=== PATIENT | female | born 1995 | race Caucasian/White ===

== ENCOUNTER 2017-02-16 15:49 | Emergency (ER) | payer MEDICAID ==
[~2017-02-16] VITALS: Ht 144.8 cm; Wt 46.3 kg
[~2017-02-16 15:49] MED LIST: CITA10TA4 PO; CONJTAB PO; DAYT15DI T-DERMAL
[2017-02-16 15:53] VITALS: BP 119/73; PULSE 104; RESP 18; TEMP 98.6; O2SAT 98
[2017-02-16] MEDS ORDERED: FLUT50SP EACH NARE (16:05)
[2017-02-16] MEDS ORDERED: PATA0.6S NASAL (16:05)
--- NOTE | 2017-02-16 16:34 | PD ---
HPI Chief Complaint: Medication Refill Request Time Seen by Provider: 16:00 Travel History International Travel<30 days: No Contact w/Intl Traveler<30days: No Traveled to known affect area: No History of Present Illness HPI 22-year-old female presents to the emergency room requesting medication refill. Patient takes Daytrana patches daily and has been for several years but her primary care physician recently moved offices and she has not been able to get a refill for next month in time. States she has been making her last prescription last longer than normal because she does not take them every day. Patient's mother made an appointment for a different doctors office so that they can refill her medication but appointment is not for another 4 days. Patient and her mother are concerned because she starts a new job in 2 days and she will not have any patches to help her concentrate. PFSH Past Medical History ADHD: Yes Anxiety: Yes Depression: Yes Diminished Hearing: Yes (MILD TO MODERATE HEARING LOSS) Headaches: Yes Reproductive: Yes (IRREG. PERIODS) Immunizations Current: Yes Influenza Vaccination: No ?: Not LMP: IRREGULAR Past Surgical History Abdominal Surgery: Yes (MALINI FUNDOPLICATION) Tonsillectomy: Yes Tympanostomy Tube: Yes (BILAT) Social History Alcohol Use: No Tobacco Use: No Substance Use: No Allergies-Medications (Allergen,Severity, Reaction): Coded Allergies: Gentamicin (Verified Allergy, Severe, Swelling, 02/16/17) Reported Meds & Prescriptions Reported Meds & Active Scripts Active Reported Patanase Nasal [place] (Olopatadine Nasal [place]) 0.6 % Naspr 1 Spr NASAL DAILY Fluticasone Nasal [place] 50 Mcg/Act Naspr 100 Mcg EACH NARE DAILY 50 mcg/spray Daytrana Patch 9 HR (Methylphenidate Patch 9 HR) 15 Mg/9 Hr Patch 1 Patch T- DERMAL DAILY Remove after 9 hours Premphase Blister Pack (Estrogens Conj/Medroxyprogest Acet) 0.625-5 Mg Tab 1 Tab PO DAILY Take 1 maroon tablet daily for 14 days followed by 1 light-blue tablet for 14 days. Citalopram (Citalopram Hydrobromide) 10 Mg Tab 10 Mg PO DAILY Review of Systems Except as stated in HPI: all other systems reviewed are Neg Physical Exam Narrative GENERAL: Well-nourished, well-developed female in no acute distress. Afebrile. Ambulatory. SKIN: Focused skin assessment warm/dry. HEAD: Normocephalic. EYES: No scleral icterus. No injection or drainage. NECK: Supple, trachea midline. No JVD or lymphadenopathy. CARDIOVASCULAR: Regular rate and rhythm without murmurs, gallops, or rubs. RESPIRATORY: Breath sounds equal bilaterally. No accessory muscle use. PSYCHIATRIC: No delusional thought processes. No hallucinations. Data Data Last Documented VS Vital Signs Date Time Temp Pulse Resp B/P Pulse Ox O2 Delivery O2 Flow Rate FiO2 02/16/17 15:53 98.6 104 18 119/73 98 MDM Medical Decision Making Medical Screen Exam Complete: Yes Emergency Medical Condition: Yes Medical Record Reviewed: Yes Differential Diagnosis Med refill, malingering, normal examination Narrative Course 22 year old female sent to the emergency room requesting refill of her ADHD medication. Patient is sitting in a job on Saturday and ran out of her medication today. She has been trying to get it refilled by her typical doctor but he moved offices. She has an appointment with a new doctor in 4 days. [facility] shows her last prescription for #30 patches was filled on 01/01/2017 which means patient has been taking them sparingly. There is no indication for emergent refill of her patches when her next appointment is in 4 days. Patient was informed that the emergency room does not fill chronic controlled/narcotic prescriptions. Told to follow-up with her doctor as planned and return to the emergency room for worsening symptoms. She understands and agrees to plan. Diagnosis Primary Impression: Encounter for medication refill Referrals: Primary Care Physician Disposition: 01 DISCHARGE HOME Condition: Stable Dione Montaño Feb 16, 2017 16:34
[2017-03-01] MEDS ORDERED: SULF20OR2 PO (16:45)
== END 2017-02-16 16:45 | disposition home or self-care (01) ==
LOC: PHEFT 15:49
DX: F90.9 Attention-deficit hyperactivity disorder, unspecified type (principal); Z76.0 Encounter for issue of repeat prescription
CPT/HCPCS: 99281